=== PATIENT | female | born 1985 ===

== ENCOUNTER 2017-04-22 13:14 | Emergency (ER) | payer OTHER ==
[2017-04-22 13:18] VITALS: BP 124/87; PULSE 99; RESP 18; TEMP 98; O2SAT 100
[2017-04-22 14:49] LABS: HEMOGLOBIN 8.6 g/dL (12.0-16.0); MEAN CORPUSCULAR HEMOGLOBIN 28.1 pg (27.0-31.0); MEAN CORPUSCULAR HGB CONC 33.1 g/dL (33.0-37.0); RBC 3.05 Mil/uL (3.80-5.20); RED CELL DISTRIBUTION WIDTH 24.7 % (11.5-14.5); WHITE BLOOD COUNT 4.2 K/uL (4.8-10.8)
[2017-04-22 14:59] LABS: ALB/GLOB RATIO 1.3 (1.0-2.1); ALBUMIN 4.4 g/dL (3.5-5.0); ALT/SGPT 41 U/L (9-52); AST/SGOT 45 U/L (14-36); BLOOD UREA NITROGEN 15 mg/dl (7-17); CALCIUM 9.3 mg/dL (8.4-10.2); GFR AFRICAN-AMERICAN > 60; GFR NON-AFRICAN AMERICAN > 60
[2017-04-22 15:13] LABS: PROTHROMBIN TIME 14.5 Seconds (9.8-13.1)
[2017-04-22 15:14] LABS: INR 1.3 (0.9-1.2); PARTIAL THROMBOPLASTIN TIME 36.1 Seconds (25.6-37.1)
--- NOTE | 2017-04-22 16:34 | ED PDOC ---
HPI: CCC, URI, Sore Throat Time Seen by Provider: 04/22/17 13:21 Chief Complaint (Nursing): ENT Problem Chief Complaint (Provider): Left sided nose bleeding x 1 hours History Per: Patient History/Exam Limitations: no limitations Onset/Duration Of Symptoms: Hrs Associated Symptoms: denies: Fever, Chills, Myalgias Ear Symptoms: Bilateral: None Additional Complaint(s): Pt has history of myelofibrosis and takes a baby aspirin daily. Pt states that she has chronic anemia from disease. Her normal Hemaglobin is 8. Past Medical History Reviewed: Historical Data, Nursing Documentation, Vital Signs Vital Signs: Last Vital Signs Temp 98 F 04/22/17 13:16 Pulse 99 H 04/22/17 13:16 Resp 18 04/22/17 13:16 BP 124/87 04/22/17 13:16 Pulse Ox 100 04/22/17 16:54 - Medical History PMH: No Chronic Diseases - Surgical History Surgical History: No Surg Hx - Family History Family History: States: No Known Family Hx - Living Arrangements Living Arrangements: With Family - Social History Current smoker - smoking cessation education provided: No Alcohol: Occasional Drugs: Denies - Allergies Allergies/Adverse Reactions: Allergies Allergy/AdvReac Type Severity Reaction Status Date / Time No Known Allergies Allergy Verified 04/22/17 13:16 Review of Systems ROS Statement: Except As Marked, All Systems Reviewed And Found Negative ENT: Positive for: Other (Nose bleed, right ) Physical Exam - Reviewed Nursing Documentation Reviewed: Yes Vital Signs Reviewed: Yes - Physical Exam Appears: Positive for: Well, Non-toxic, No Acute Distress Head Exam: Positive for: ATRAUMATIC, NORMAL INSPECTION, NORMOCEPHALIC Skin: Positive for: Normal Color, Warm, DRY Eye Exam: Positive for: Normal appearance ENT: Positive for: Other ((+) slow anterior bleed, right ). Negative for: Normal ENT Inspection Neck: Positive for: Normal, Painless ROM Cardiovascular/Chest: Positive for: Regular Rate, Rhythm Respiratory: Positive for: Normal Breath Sounds. Negative for: Accessory Muscle Use, Respiratory Distress Back: Positive for: Normal Inspection Extremity: Positive for: Normal ROM Neurologic/Psych: Positive for: Alert, Oriented - Laboratory Results Result Diagrams: 04/22/17 14:40 04/22/17 14:40 - ECG O2 Sat by Pulse Oximetry: 100 Medical Decision Making Medical Decision Making: Constant pressure held for 10 minutes. When bleeding stops labs drawn. Hb is 8.7 Disposition - Clinical Impression Clinical Impression: Epistaxis - Patient ED Disposition Is Patient to be Admitted: No Counseled Patient/Family Regarding: Diagnosis, Need For Followup - Disposition Disposition: Routine/Home Disposition Time: 16:18 Condition: GOOD Instructions: Nosebleed (ED)
== END 2017-04-22 16:37 | disposition home or self-care (01) ==
LOC: H.ER 13:14
DX: R04.0 Epistaxis (principal)